=== PATIENT | female | born 1950 | race Caucasian/White ===

== ENCOUNTER 2022-07-03 17:25 | Emergency (ER) | payer MEDICARE, BC ==
[~2022-07-03] VITALS: Ht 167.6 cm; Wt 75.7 kg
[2022-07-03 17:39] VITALS: BP 122/63
[2022-07-03 17:45] VITALS: BP 130/55
[2022-07-03 18:00] VITALS: BP 129/54
[2022-07-03] MEDS ORDERED: ELIQUIS5 MG PO (18:11)
[2022-07-03] MEDS ORDERED: LEVOTHYROXIN50 MCG PO (18:11)
[2022-07-03] MEDS ORDERED: LIPITOR20 M1 PO (18:12)
[2022-07-03] MEDS ORDERED: METOPROL TAR25 M1 PO (18:12)
[2022-07-03 18:15] VITALS: BP 132/59
[2022-07-03] MEDS ORDERED: PEPCID20 MG PO (18:30)
[2022-07-03] MEDS ORDERED: PREDNISONE20 MG PO (18:30)
[2022-07-03] MEDS ORDERED: ZYRTEC10 MG PO (18:30)
[2022-07-03 18:31] VITALS: BP 133/65
[2022-07-03 18:33] VITALS: BP 133/65
[2022-07-03] MEDS ORDERED: KEFLEX500 MG PO (19:33)
[2022-07-04] MEDS ORDERED: EPIPEN 2-P0.3 MG/0.3 SC (15:09)
== END 2022-07-03 18:40 | disposition home or self-care (01) ==
LOC: ED 17:25
DX: T63.421A Toxic effect of venom of ants, accidental (unintentional), initial encounter (principal); L03.116 Cellulitis of left lower limb; Y92.009 Unspecified place in unspecified non-institutional (private) residence as the place of occurrence of the external cause